=== PATIENT | male | born 1935 | race Caucasian/White ===

== ENCOUNTER 2017-09-02 00:34 | Inpatient (IN) | payer MEDICARE, OTHER ==
[2017-09-02] VITALS (18 sets, daily range): BP systolic 99–146; BP diastolic 68–102
[~2017-09-02] VITALS: Ht 185.4 cm; Wt 80.1 kg
[2017-09-02] MEDS ORDERED: ASPIRIN 81 MG CHEW (CHILDREN'S ASA) ONE (00:54)
[2017-09-02] MEDS ORDERED: NITROGLYCERIN 0.4 MG SL TABS BTL 25'S SL ONE (00:54)
[2017-09-02 00:59] LABS: BASOPHILS % (AUTO) 0 % (0-10); EOSINOPHILS # (AUTO) 0.1 10^3/uL (0.0-0.3); EOSINOPHILS % (AUTO) 2 % (0-10); HEMATOCRIT 47 % (40-54); HEMOGLOBIN 16.5 G/DL (13.3-17.7); LYMPHOCYTES # (AUTO) 1.9 X 10^3 (1.0-4.0); LYMPHOCYTES % (AUTO) 33 % (12-44); MEAN CORPUSCULAR HEMOGLOBIN 32 PG (25-34); MEAN CORPUSCULAR HGB CONC 35 G/DL (32-36); MEAN CORPUSCULAR VOLUME 91 FL (80-99); MEAN PLATELET VOLUME 9.7 FL (7.4-10.4); MONOCYTES # (AUTO) 0.6 X 10^3 (0.0-1.0); MONOCYTES % (AUTO) 11 % (0-12); NEUTROPHILS # (AUTO) 3.1 X 10^3 (1.8-7.8); NEUTROPHILS % (AUTO) 53 % (42-75); PLATELET COUNT 165 10^3/uL (130-400); RED BLOOD COUNT 5.18 10^6/uL (4.35-5.85); RED CELL DISTRIBUTION WIDTH 13.8 % (10.0-14.5); WHITE BLOOD COUNT 5.7 10^3/uL (4.3-11.0)
[2017-09-02] MEDS ORDERED: ASPIRIN 81 MG CHEW (CHILDREN'S ASA) PO ONE (01:00)
[2017-09-02] MEDS ORDERED: NITROGLYCERIN 0.4 MG SL TABS BTL 25'S SL PRN ×2 (01:00→02:30)
[2017-09-02 01:05] LABS: INR 1.1 (0.8-1.4); PROTHROMBIN TIME PATIENT 13.7 SEC (12.2-14.7)
--- NOTE | 2017-09-02 01:05 | ED Chest Pain ---
General Chief Complaint: Chest Pain Stated Complaint: CP, NECK & LEFT ARM PAIN Nursing Triage Note: PT PRESENTS TO ER WITH COMPLAINT OF CHEST PAIN. Nursing Sepsis Screen: No Definite Risk Source: patient, spouse Exam Limitations: no limitations History of Present Illness Date Seen by Provider: Sep 02, 2017 Time Seen by Provider: 00:50 Initial Comments The patient presents to the ER by private conveyance with his spouse and a chief complaint that about 11:30 last night he woke up with some discomfort in his chest that he described as a burning pressure that he thought might of been reminiscent of acid reflux. He took some antacids and it did not go away. The pain was initially a peak 7 out of 10. It radiated down his left arm. He rested for a minute and when the pain did not seem to get better on its own or with the antacids he decided to come to the ER. He did not have any shortness of breath or cough nor did he have any fevers, chills or nausea. He does not have a primary history of heart disease. He does not take any routine medications or have any significant medical history other than acid reflux. He did take an entire adult aspirin and swallow it. He felt a few palpitations with this chest. He states he also has a history of PACs and PVCs frequently. He is not known to any numerical control machine machinist. He is not having any shortness of breath or worsening chest pain with exertion. He says he did lift about a ton of gravel yesterday for a dog pen by wheelbarrow although he is not having any soreness or stiffness and any of his chest wall or shoulder muscles. Presently he rates his chest pain about a 2 out of 10. Allergies and Home Medications Allergies Coded Allergies: No Known Drug Allergies (Unverified , 09/02/17) Patient Home Medication List Home Medication List Reviewed: Yes Review of Systems Constitutional: No chills, No diaphoresis, No dizziness, No fever, No malaise EENTM: No Blurred Vision, No Double Vision Respiratory: Denies Cough, Denies Shortness of Air, Denies SOA With Exertion, Denies Wheezing Cardiovascular: See HPI, Chest Pain; Denies Edema, Denies Irregular Heart Rate , Denies Lightheadedness Gastrointestinal: Denies Abdomen Distended, Denies Abdominal Pain, Denies Constipated, Denies Diarrhea, Denies Nausea Genitourinary: Denies Burning, Denies Drainage Musculoskeletal: No back pain, No joint pain, No neck pain Skin: No pruritus, No rash Psychiatric/Neurological: Denies Headache, Denies Numbness Past Meascic-Mkdxks-Kiwkws Hx Patient Social History Alcohol Use: Regular Use Recreational Drug Use: No Smoking Status: Former Smoker Type Used: Cigarettes (quit smoking cigarettes in the 1970s) Recent Foreign Travel: No Contact w/Someone Who Travel: No Recent Infectious Disease Expo: No Physical Exam Vital Signs Vital Signs - First Documented 09/02/17 00:35 Temp 97.0 Pulse 125 Resp 20 B/P (MAP) 179/104 (129) Pulse Ox 97 O2 Delivery Room Air Capillary Refill : Less Than 3 Seconds General Appearance: No Apparent Distress, WD/WN HEENT: PERRL/EOMI, Normal ENT Inspection, Pharynx Normal Neck: Full Range of Motion, Non Tender, Supple Respiratory: Chest Non Tender, Lungs Clear, Normal Breath Sounds, No Accessory Muscle Use, No Respiratory Distress Cardiovascular: Regular Rate, Rhythm, No Edema, No Gallop, No JVD, No Murmur, Normal Peripheral Pulses Gastrointestinal: Normal Bowel Sounds, Non Tender, Soft Extremity: Normal Capillary Refill, Normal Inspection, Non Tender, No Calf Tenderness, No Pedal Edema Neurologic/Psychiatric: Alert, Oriented x3, Normal Mood/Affect Skin: Normal Color, Warm/Dry Progress/Results/Core Measures Results/Orders Lab Results Laboratory Tests Test 09/02/17 00:45 Range/Units White Blood Count 5.7 4.3-11.0 10^3/uL Red Blood Count 5.18 4.35-5.85 10^6/uL Hemoglobin 16.5 13.3-17.7 G/DL Hematocrit 47 40-54 % Mean Corpuscular Volume 91 80-99 FL Mean Corpuscular Hemoglobin 32 25-34 PG Mean Corpuscular Hemoglobin Concent 35 32-36 G/DL Red Cell Distribution Width 13.8 10.0-14.5 % Platelet Count 165 130-400 10^3/uL Mean Platelet Volume 9.7 7.4-10.4 FL Neutrophils (%) (Auto) 53 42-75 % Lymphocytes (%) (Auto) 33 12-44 % Monocytes (%) (Auto) 11 0-12 % Eosinophils (%) (Auto) 2 0-10 % Basophils (%) (Auto) 0 0-10 % Neutrophils # (Auto) 3.1 1.8-7.8 X 10^3 Lymphocytes # (Auto) 1.9 1.0-4.0 X 10^3 Monocytes # (Auto) 0.6 0.0-1.0 X 10^3 Eosinophils # (Auto) 0.1 0.0-0.3 10^3/uL Basophils # (Auto) 0.0 0.0-0.1 10^3/uL Prothrombin Time 13.7 12.2-14.7 SEC INR Comment 1.1 0.8-1.4 Activated Partial Thromboplast Time 31 24-35 SEC Sodium Level 143 135-145 MMOL/L Potassium Level 3.9 3.6-5.0 MMOL/L Chloride Level 109 H 98-107 MMOL/L Carbon Dioxide Level 22 21-32 MMOL/L Anion Gap 12 5-14 MMOL/L Blood Urea Nitrogen 18 7-18 MG/DL Creatinine 0.83 0.60-1.30 MG/DL Estimat Glomerular Filtration Rate > 60 BUN/Creatinine Ratio 22 Glucose Level 110 H 70-105 MG/DL Calcium Level 9.7 8.5-10.1 MG/DL Magnesium Level 2.4 1.8-2.4 MG/DL Total Bilirubin 1.0 0.1-1.0 MG/DL Aspartate Amino Transf (AST/SGOT) 57 H 5-34 U/L Alanine Aminotransferase (ALT/SGPT) 33 0-55 U/L Alkaline Phosphatase 99 40-136 U/L Myoglobin 76.6 10.0-92.0 NG/ML Troponin I < 0.30 <0.30 NG/ML B-Type Natriuretic Peptide 143.6 H <100.0 PG/ML Total Protein 7.1 6.4-8.2 GM/DL Albumin 4.4 3.2-4.5 GM/DL Lipase 36 8-78 U/L My Orders Orders - [facility] Cbc With Automated Diff (09/02/17 00:52) Magnesium (09/02/17 00:52) Chest 1 View, Ap/Pa Only (09/02/17 00:52) Ekg Tracing (09/02/17 00:52) Cardiac Profile 1 (09/02/17 00:52) Comprehensive Metabolic Panel (09/02/17 00:52) Myoglobin Serum (09/02/17 00:52) Protime With Inr (09/02/17 00:52) Partial Thromboplastin Time (09/02/17 00:52) O2 (09/02/17 00:52) Monitor-Rhythm Ecg Trace Only (09/02/17 00:52) Lipid Panel (09/03/17 06:00) Aspirin Chewable Tablet (Baby Aspirin Ch (09/02/17 01:00) Nitroglycerin 0.4 Mg Btl 25's (Nitrostat (09/02/17 01:00) Saline Lock/Iv-Start (09/02/17 00:52) Lipase (09/02/17 00:52) BNP (09/02/17 00:52) Nitroglycerin 0.4 Mg Btl 25's (Nitrostat (09/02/17 00:54) Aspirin Chewable Tablet (Baby Aspirin Ch (09/02/17 00:54) Medications Given in ED Current Medications Medications Dose Ordered Sig/Romeo Route Start Time Stop Time Status Last Admin Dose Admin Aspirin 81 mg STK-MED ONCE .ROUTE 09/02/17 00:54 09/02/17 00:55 DC 09/02/17 00:58 81 MG Aspirin 162 mg ONCE ONCE PO 09/02/17 01:00 09/02/17 01:01 DC 09/02/17 00:58 162 MG Nitroglycerin 0.4 mg STK-MED ONCE SL 09/02/17 00:54 09/02/17 00:55 DC 09/02/17 00:58 0.4 MG Nitroglycerin 0.4 mg UD PRN SL 09/02/17 01:00 09/02/17 00:58 0.4 MG Vital Signs/I&O 09/02/17 00:35 Temp 97.0 Pulse 125 Resp 20 B/P (MAP) 179/104 (129) Pulse Ox 97 O2 Delivery Room Air Blood Pressure Mean: 129 Progress Progress Note : Time: 01:01 Progress Note Chest pain without chest wall tenderness or painful inspiration. Differential includes cardiac, esophageal. Less likely costochondritis as is not tender to palpation however with his history of lifting a lot of gravel yesterday could be overuse syndrome. We'll start with 180 of aspirin in addition to the 325 that he took at home as we don't know the expiration date. We'll give him a single dose of nitroglycerin as his pain is already down to a 2 and see if this gives his discomfort or blood pressure any improvement. After his first dose of nitroglycerin his blood pressure is down to 125/97. His EKG has some artifact and PVCs and PACs but there does seem to be about 1 box depression in leads V4 and a almost 2 box depression in leads V5 and V6 which could indicate right sided strain pattern or non-STEMI. We'll see what the troponin shows initially. ED ACS 27 pts Not low risk. This patient is not a candidate for early discharge and should receive a standard chest pain evaluation with delayed troponin testing. Initial ECG Impression Date: Sep 02, 2017 Initial ECG Impression Time: 00:41 Initial ECG Rate: 117 Initial ECG Rhythm: S.Tach Initial ECG Intervals: QT (452) Initial ECG Impression: Nonspecific Changes Initial ECG Comparisson: No Previous ECG Available Comment Lateral ST depression with sinus tachycardia. Diagnostic Imaging Diagonstic Imaging: Xray Plain Films/CT/US/NM/MRI: chest (1v) Reviewed: Reviewed by Me Departure Communication (Admissions) Time/Spoke to Admitting Phy: 01:56 Dr Delgado: Discussed case lab imaging EKG and findings and he will see the patient in the morning. Time/Spoke to Consulting Phy: 01:30 Dr. Ojeda recommends holding on to him and repeat labs and EKG in the morning and he'll see the patient. Impression Primary Impression: Chest pain Qualified Codes: R07.9 - Chest pain, unspecified Disposition: ADMITTED INPATIENT Condition: Improved Admissions Decision to Admit Reason: Admit from ER (General) Decision to Admit/Date: Sep 02, 2017 Time/Decision to Admit Time: 02:03 Departure-Patient Inst. Referrals: NIKKI GILMAN MD (PCP/Family) Primary Care Physician Copy Copies To 1: PAWAN OJEDA MD, TITUS J Sep 02, 2017 01:05
[2017-09-02 01:14] LABS: ALANINE AMINOTRANSFERASE 33 U/L (0-55); ALBUMIN 4.4 GM/DL (3.2-4.5); ALKALINE PHOSPHATASE 99 U/L (40-136); BUN/CREATININE RATIO 22; CALCIUM 9.7 MG/DL (8.5-10.1); CARBON DIOXIDE 22 MMOL/L (21-32); CHLORIDE 109 MMOL/L (98-107); CREATININE SERUM 0.83 MG/DL (0.60-1.30); GFR ESTIMATED > 60; GLUCOSE 110 MG/DL (70-105); LIPASE 36 U/L (8-78); MAGNESIUM 2.4 MG/DL (1.8-2.4); POTASSIUM 3.9 MMOL/L (3.6-5.0); SODIUM 143 MMOL/L (135-145); TOTAL PROTEIN 7.1 GM/DL (6.4-8.2)
[2017-09-02 01:20] LABS: MYOGLOBIN SERUM 76.6 NG/ML (10.0-92.0)
[2017-09-02] MEDS ORDERED: ONDANSETRON 4 MG/2 ML (SDV) Z0FRAN IVP PRN (02:15)
[2017-09-02] MEDS ORDERED: morphine INJ 4 MG/ML 1 ML (VIAL/SYRINGE) IVP PRN (02:30)
[2017-09-02 05:59] LABS: BASOPHILS % (AUTO) 0 % (0-10); EOSINOPHILS % (AUTO) 1 % (0-10); HEMATOCRIT 45 % (40-54); HEMOGLOBIN 15.6 G/DL (13.3-17.7); LYMPHOCYTES # (AUTO) 1.1 X 10^3 (1.0-4.0); LYMPHOCYTES % (AUTO) 21 % (12-44); MEAN CORPUSCULAR HEMOGLOBIN 32 PG (25-34); MEAN CORPUSCULAR HGB CONC 35 G/DL (32-36); MEAN CORPUSCULAR VOLUME 91 FL (80-99); MEAN PLATELET VOLUME 9.8 FL (7.4-10.4); MONOCYTES # (AUTO) 0.5 X 10^3 (0.0-1.0); MONOCYTES % (AUTO) 9 % (0-12); NEUTROPHILS # (AUTO) 3.8 X 10^3 (1.8-7.8); NEUTROPHILS % (AUTO) 69 % (42-75); PLATELET COUNT 146 10^3/uL (130-400); RED CELL DISTRIBUTION WIDTH 14.1 % (10.0-14.5); WHITE BLOOD COUNT 5.5 10^3/uL (4.3-11.0)
[2017-09-02 06:16] LABS: BUN/CREATININE RATIO 24; CARBON DIOXIDE 20 MMOL/L (21-32); CHLORIDE 111 MMOL/L (98-107); CHOLESTEROL 130 MG/DL (< 200); GFR ESTIMATED > 60; GLUCOSE 99 MG/DL (70-105); HDL CHOLESTEROL 65 MG/DL (40-60); POTASSIUM 4.1 MMOL/L (3.6-5.0); SODIUM 142 MMOL/L (135-145); TRIGLYCERIDES 46 MG/DL (<150); VLDL CHOLESTEROL 9 MG/DL (5-40)
[2017-09-02] MEDS ORDERED: LIDOCAINE 1% INJ 20 ML 20 ML VIAL ONE (07:02)
[2017-09-02] MEDS ORDERED: NS IV 1000 ML 1,000 ML ONE ×2 (07:02→10:03)
[2017-09-02] MEDS ORDERED: HEParin (CATH LAB) 2,000 ML IV ONE (07:02)
--- NOTE | 2017-09-02 07:04 | Diagnostic Imaging Report ---
Indication: Chest pain. Comparison: None. Findings: Single view of the chest demonstrates cardiac enlargement with slight central vascular congestion. There is no pneumothorax or effusion. Osseous structures are normal. Impression: Cardiac enlargement with slight central vascular congestion. Dictated by: Dictated on workstation # [id number]
[2017-09-02] MEDS ORDERED: MIDAZOLAM 5 MG/5 ML (VERSED) VIAL ONE (07:30)
[2017-09-02] MEDS ORDERED: HEParin 1000 UNIT/ML (10ML VIAL) FOR BOLUS ONE (07:31)
[2017-09-02] MEDS ORDERED: fentaNYL INJECTION 100 MCG/2 ML AMP ONE (07:31)
--- NOTE | 2017-09-02 07:38 | Cardiology History & Physical ---
HPI-Cardiology Cardiology Consultation Date of Consultation 09/02/17 Date of Admission Time Seen by Provider: 07:35 Indication: Chest pain HPI 81 years old gentleman with no significant past medical history, had history of hemorrhagic telangiectasia with recurrent nosebleed. Woke up this morning with heartburn, took some Tums, continue to have chest discomfort without palpitation. Came to the emergency room and noted to be in atrial fibrillation , even sublingual nitroglycerin with immediate relieve of his chest pain, had subtle EKG changes. Denied any further episode of chest pain, reported occasional episodes of palpitation in the past. No syncope or near syncopal episodes, no shortness of breath. His troponin was noted to be elevated and he is in atrial fibrillation PMH-Cardiology Immunizations Up To Date Tetanus Booster (DTap): Unknown Seasonal Allergies Seasonal Allergies: No Surgeries Yes (NASAL) Respiratory No Cardiovascular Yes Neurological No Genitourinary No Gastrointestinal No Musculoskeletal No Endocrine No HEENT No Cancer No Psychosocial No Blood Transfusions No Other PMHx Past medical history discussed below Social History Patient Social History Marrital Status: Employed/Student: retired Alcohol Use: Regular Use Recreational Drug Use: No Smoking: Never smoker Recent Foreign Travel: No Contact w/other who traveled: No Recent Infectious Disease Expo: No Family Hx Other Hemorrhagic telangiectasia ROS-Cardiology Review of Systems General: No Chills, No Night Sweats, No Fatigue, No Malaise, No Appetite HEENT: No Head Aches, No Visual Changes, No Eye Pain, No Ear Pain, No Dysphasia , No Sinus Congestion, No Post Nasal Drip, No Sore Throat Pulmonary: No Dyspnea, No Cough, No Pleuritic Chest Pain Cardiovascular: Chest Pain, Palpitations; No: Orthopnea, Paroxysmal Noc. Dyspnea, Edema, Lt Headedness Gastrointestinal: No: Nausea, Vomiting, Abdominal Pain, Diarrhea, Constipation , Melena, Hematochezia Genitourinary: No Dysuria, No Frequency, No Incontinence, No Hematuria, No Retention Musculoskeletal: No: neck pain, shoulder pain, arm pain, back pain, hand pain, leg pain, foot pain Neurological: No: Weakness, Numbness, Incoordination, Change in speech, Confusion, Seizures Home Medications & Allergies Allergies: Coded Allergies: No Known Drug Allergies (Unverified , 09/02/17) Home Medication List Reviewed: Yes Does not take any medication at home Exam-Cardiology Vital Signs Vital Signs Date Time Temp Pulse Resp B/P (MAP) Pulse Ox O2 Delivery O2 Flow Rate FiO2 09/02/17 00:35 97.0 125 20 179/104 (129) 97 Room Air Exam General Appearance: Alert, Oriented X3, Cooperative, No Acute Distress HEENT: Atraumatic, PERRLA Respiratory: Clear to Auscultation, Normal Air Movement Cardiovascular: Normal S1, Normal S2, No Murmurs, Other (Atrial fibrillation) Abdominal: Normal Bowel Sounds, Soft, No Tenderness, No Hepatosplenomegaly, No Masses Extremities: No Clubbing, No Cyanosis, No Edema, Normal Pulses, No Tenderness/ Swelling Skin: No Rashes, No Breakdown, No Significant Lesion Neuro: Normal Gait, Normal Speech, Strength at 5/5 X4 Ext, Normal Tone, Sensation Intact Psych/Mental Status: Mental Status NL, Mood NL Results Labs Labs Laboratory Tests 09/02/17 00:45: White Blood Count 5.7, Red Blood Count 5.18, Hemoglobin 16.5, Hematocrit 47, Mean Corpuscular Volume 91, Mean Corpuscular Hemoglobin 32, Mean Corpuscular Hemoglobin Concent 35, Red Cell Distribution Width 13.8, Platelet Count 165, Mean Platelet Volume 9.7, Neutrophils (%) (Auto) 53, Lymphocytes (%) (Auto) 33, Monocytes (%) (Auto) 11, Eosinophils (%) (Auto) 2, Basophils (%) (Auto) 0, Neutrophils # (Auto) 3.1, Lymphocytes # (Auto) 1.9, Monocytes # (Auto) 0.6, Eosinophils # (Auto) 0.1, Basophils # (Auto) 0.0, Prothrombin Time 13.7, INR Comment 1.1, Activated Partial Thromboplast Time 31, Sodium Level 143, Potassium Level 3.9, Chloride Level 109H, Carbon Dioxide Level 22, Anion Gap 12 , Blood Urea Nitrogen 18, Creatinine 0.83, Estimat Glomerular Filtration Rate > 60, BUN/Creatinine Ratio 22, Glucose Level 110H, Calcium Level 9.7, Magnesium Level 2.4, Total Bilirubin 1.0, Aspartate Amino Transf (AST/SGOT) 57H, Alanine Aminotransferase (ALT/SGPT) 33, Alkaline Phosphatase 99, Myoglobin 76.6, Troponin I < 0.30, B-Type Natriuretic Peptide 143.6H, Total Protein 7.1, Albumin 4.4, Lipase 36 09/02/17 05:50: White Blood Count 5.5, Red Blood Count 4.90, Hemoglobin 15.6, Hematocrit 45, Mean Corpuscular Volume 91, Mean Corpuscular Hemoglobin 32, Mean Corpuscular Hemoglobin Concent 35, Red Cell Distribution Width 14.1, Platelet Count 146, Mean Platelet Volume 9.8, Neutrophils (%) (Auto) 69, Lymphocytes (%) (Auto) 21, Monocytes (%) (Auto) 9, Eosinophils (%) (Auto) 1, Basophils (%) (Auto) 0, Neutrophils # (Auto) 3.8, Lymphocytes # (Auto) 1.1, Monocytes # (Auto) 0.5, Eosinophils # (Auto) 0.0, Basophils # (Auto) 0.0, Sodium Level 142, Potassium Level 4.1, Chloride Level 111H, Carbon Dioxide Level 20L, Anion Gap 11, Blood Urea Nitrogen 17, Creatinine 0.70, Estimat Glomerular Filtration Rate > 60, BUN/ Creatinine Ratio 24, Glucose Level 99, Calcium Level 9.0, Troponin I 3.56*H, Triglycerides Level 46, Cholesterol Level 130, LDL Cholesterol Direct 57, VLDL Cholesterol 9, HDL Cholesterol 65H A/P-Cardiology Admission Diagnosis Non-ST elevation myocardial infarction Paroxysmal atrial fibrillation Unstable angina Coronary artery disease Hypertension Admission Status: Observation Assessment/Plan Non-ST elevation myocardial infarction, unstable angina, I am planning to proceed with cardiac catheterization possible PTCA. Atrial fibrillation, unknown duration, patient will need oral anticoagulation after the catheterization. Palpitation on and off, probably paroxysmal atrial fibrillation. Gastroesophageal reflux disease Hypertension, poorly controlled. I will initiate him on beta blockers Questionable hyperlipidemia. I will evaluate lipid Clinical Quality Measures AMI/AHF: ASA po Prior to arrival: Yes PAWAN AKHTAR MD Sep 02, 2017 07:38
--- NOTE | 2017-09-02 07:39 | Cardiac Procedure Note-CS/ASA ---
Pre-Procedure Note Pre-Op Procedure Note H&P Reviewed The H&P was reviewed, patient examined and no changes noted. Date H&P Reviewed: Sep 02, 2017 Time H&P Reviewed: 07:38 Conscious Sedation Pre-Proced Time Reviewed: 07:38 ASA Class: 3 Airway Mallampati Classification: (n[place]alton appropriate class) I. II. III, IV Lungs Heart ASA score ASA 1: a normal healthy patient ASA 2: a patient with a mild systemic disease (mid diabetes, controlled hypertension, obesity x ASA 3: a patient with a severe systemic disease that limits activity (angina , COPD, prior Myocardial infarction) ASA 4: a patient with an incapacitating disease that is a constant threat to life (CHF, renal failure) ASA 5: a moribund patient not expected to survive 24 hrs. (ruptured aneurysm) ASA 6: a declared brain patient whose organs are being harvested. For emergent operations, add the letter E after the classification Grade 3 Sedation Plan: Analgesia, Amnesia, Plan communicated to team members, Discussed options with patient/fam, Discussed risks with patient/fam Note The patient is an appropriate candidate to undergo the planned procedure, sedation, and anesthesia. The patient immediately re-assessed prior to indication. PAWAN AKHTAR MD Sep 02, 2017 07:38
[2017-09-02] MEDS ORDERED: EPTIFIBATIDE BOLUS 20 ML IV ONE (08:04)
[2017-09-02] MEDS ORDERED: NITRO DRIP 25000 MCG/D5W 250 ML IV ONE (08:14)
[2017-09-02] MEDS ORDERED: EPTIFIBATIDE DRIP 100 ML IV ONE (08:17)
[2017-09-02] MEDS ORDERED: ASPIRIN 325 MG (5 GR) TABLET ONE (08:38)
[2017-09-02] MEDS ORDERED: TICAGRELOR 90 MG TABLET (BRILINTA) PO ONE (08:38)
[2017-09-02] MEDS ORDERED: EPTIFIBATIDE DRIP 100 ML IV SCH (08:45)
[2017-09-02] MEDS ORDERED: PATIENT MAY USE OWN MEDS, ALL PO SCH (08:45)
[2017-09-02] MEDS ORDERED: lisINopril 5 MG (PRINIVIL) TABLET PO SCH (09:00)
[2017-09-02] MEDS ORDERED: ASPIRIN E.C. 81 MG (ECOTRIN) TAB PO SCH (09:00)
[2017-09-02] MEDS ORDERED: ATROPINE INJECTION 1 MG/10 ML SYR (ABBOTT) ONE (09:21)
[2017-09-02] MEDS ORDERED: PANTOPRAZOLE 40 MG (PROTONIX) TAB PO NR (10:07)
[2017-09-02] MEDS: NS IV 1000 ML 1,000 ML IV SCH ×3 (10:13→20:18)
[2017-09-02] MEDS ORDERED: TICAGRELOR 90 MG TABLET (BRILINTA) PO SCH (10:57)
--- NOTE | 2017-09-02 16:01 | Cardiac Cath Report ---
Cardiac Cath Report Physician (s)/Parking Enforcement Technician (s) Physician PAWAN AKHTAR MD Pre-Procedure Diagnosis Pre-Procedure Diagnosis: coronary artery disease, non-ST NE Post-Procedure Note Procedure Start Date: Sep 02, 2017 Name of Procedure: Left heart catheterization, left ventriculogram Stent to the LAD Findings/Procedure Note PROCEDURE NOTE: After explaining the procedure to the patient, all pros and cons were explained , all questions were answered. The patient signed the consent and then he was placed on the cardiac catheterization laboratory. Groin was prepped SL fashion local anesthesia was used. Sheath placed in the right femoral artery. Lv right and left catheter were used to access the coronary system. Pigtail was used to access the left ventricular cavity. Left ventriculogram was done Patient has severe stenosis at the proximal LAD with heavy thrombus burden and slow flow, given heparin bolus and double Integrilin bolus then he was given Integrilin drip, FL guide was used to ask the left coronary system, BMW wire was placed in the distal LAD then I used predilatation with 3.015 mm balloon, some improvement was noted then I proceeded with the appointment of Alpine 3.5 23 mm drug-eluting stent expanded to 3.6 mm with excellent results but slow flow beyond the stent. Patient was given Integrilin bolus and multiple doses of nitroglycerin, the slow flow has improved significantly but continued to have ROLAN 2 flow, I felt that it is significant improvement especially with the low cardiac output. He was having no chest pain and EKG returned to normal. I decided to continue monitoring. At the end of the procedure the sheath was removed. Closure device was used FINDINGS: Hemodynamics LV 100/19, end-diastolic pressure of 19 Aorta 120/95, no significant gradient was noted ANATOMY: Left Main is free of obstructive disease Left Anterior Descending is large artery with severe proximal LAD stenosis successful careful placement of drug-eluting stent Alpine 3.523 mm expanded to 3.6 at the ostial/proximal LAD with excellent results, slow flow at the distal LAD due to low cardiac output and heavy thrombus burden, some improvement after aggressive anticoagulation and intracoronary nitroglycerin. 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 Severe proximal/ostial LAD stenosis with heavy thrombus burden, successful antiplastic in-stent deployment using Alpine 3.523 mm expanded to 3.6 mm with excellent results. Slow flow at the distal LAD with some improvement after nitroglycerin injection 2. 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 Severe ischemic cardiomyopathy with anterior wall, anteroapical, anteroseptal hypokinesia to akinesia with estimated ejection fraction 30 percent DISCUSSION AND RECOMMENDATION: I will continue maximizing medical therapy at this point. Planning for possible EDWIN and cardioversion if patient does not convert Anesthesia Type: Conscious Sedation Estimated blood loss (mL): 15 ml Contrast Amount: 175 ml` Total Radiation Dose: 1257 mGy Post-Procedure Diagnosis Post-operative diagnosis: Non-ST myocardial infarction Coronary artery disease Congestive heart failure, acute left ventricular systolic dysfunction, ischemic cardiomyopathy Atrial fibrillation PAWAN AKHTAR MD Sep 02, 2017 4:01 pm
[2017-09-02] MEDS: OMEGA 3 (FISH OIL) 1000 MG CAP PO SCH (16:08)
[2017-09-02] MEDS: TICAGRELOR 90 MG TABLET (BRILINTA) PO SCH (20:57)
[2017-09-02] MEDS ORDERED: ATORVASTATIN 80 MG (LIPITOR) TABLET PO SCH (21:00)
[2017-09-03] VITALS (10 sets, daily range): BP systolic 83–141; BP diastolic 56–97
[2017-09-03 03:55] LABS: HEMOGLOBIN 13.4 G/DL (13.3-17.7); MEAN PLATELET VOLUME 10.4 FL (7.4-10.4); RED BLOOD COUNT 4.16 10^6/uL (4.35-5.85); RED CELL DISTRIBUTION WIDTH 13.7 % (10.0-14.5); WHITE BLOOD COUNT 7.1 10^3/uL (4.3-11.0)
[2017-09-03 04:23] LABS: BUN/CREATININE RATIO 15; CALCIUM 8.6 MG/DL (8.5-10.1); CARBON DIOXIDE 24 MMOL/L (21-32); CHLORIDE 110 MMOL/L (98-107); CHOLESTEROL 111 MG/DL (< 200); CREATININE SERUM 0.73 MG/DL (0.60-1.30); GFR ESTIMATED > 60; GLUCOSE 97 MG/DL (70-105); HDL CHOLESTEROL 51 MG/DL (40-60); POTASSIUM 3.8 MMOL/L (3.6-5.0); SODIUM 142 MMOL/L (135-145); TRIGLYCERIDES 60 MG/DL (<150); VLDL CHOLESTEROL 12 MG/DL (5-40)
[2017-09-03] MEDS: NS IV 1000 ML 1,000 ML IV SCH (06:22)
[2017-09-03] MEDS: OMEGA 3 (FISH OIL) 1000 MG CAP PO SCH ×2 (06:27→16:17)
[2017-09-03] MEDS: PANTOPRAZOLE 40 MG (PROTONIX) TAB PO SCH (06:28)
--- NOTE | 2017-09-03 07:28 | Cardiology Progress Note ---
Subjective Date Seen by Provider: Sep 03, 2017 Time Seen by Provider: 07:23 Subjective/Events-last exam Patient was seen at bedside, laying down in bed, denied any chest pain or shortness of breath, complaining of fatigue and loss of energy. Groin is healing well, has bruising around the right groin. Review of Systems General: No Chills, No Night Sweats; Fatigue; No Malaise, No Appetite, No Other HEENT: No Head Aches, No Visual Changes, No Eye Pain, No Ear Pain, No Dysphasia , No Sinus Congestion, No Post Nasal Drip, No Sore Throat, No Other Pulmonary: No Dyspnea, No Cough, No Pleuritic Chest Pain, No Other Cardiovascular: No: Chest Pain, Palpitations, Orthopnea, Paroxysmal Noc. Dyspnea, Edema, Lt Headedness, Other Objective-Cardiology Exam Last Set of Vital Signs Vital Signs 09/02/17 09/02/17 09/02/17 09/03/17 09:06 09:45 11:31 05:00 Temp 98.0 Pulse 84 Resp 18 B/P (MAP) 137/97 (110) Pulse Ox 99 O2 Delivery Room Air O2 Flow Rate 2.00 Capillary Refill : Less Than 3 Seconds General: Alert, Oriented X3, Cooperative, No Acute Distress HEENT: Atraumatic, PERRLA Lungs: Clear to Auscultation, Normal Air Movement Heart: Normal S1, Normal S2, No Murmurs, Other (Atrial fibrillation) Abdomen: Normal Bowel Sounds, Soft, No Tenderness, No Hepatosplenomegaly, No Masses Extremities: No Clubbing, No Cyanosis, No Edema, Normal Pulses, No Tenderness/ Swelling Skin: No Rashes, No Breakdown, No Significant Lesion Neuro: Normal Gait, Normal Speech, Strength at 5/5 X4 Ext, Normal Tone, Sensation Intact Psych/Mental Status: Mental Status NL, Mood NL Results Lab Laboratory Tests 09/03/17 03:05 A/P-Cardiology Admission Diagnosis Non-ST elevation myocardial infarction Paroxysmal atrial fibrillation Unstable angina Coronary artery disease Hypertension Assessment/Plan Non-ST elevation myocardial infarction, status post cardiac catheterization with stenting of the LAD with excellent results, slow flow in the distal LAD that improved after intracoronary nitroglycerin. Congestive heart failure, acute left ventricular systolic dysfunction, ischemic cardiomyopathy with ejection fraction 30-35 percent, severe hypokinesia to akinesia of the anterior wall, anterior septum and anterolateral wall. Starting on beta blockers and low-dose KIP inhibitor Atrial fibrillation, unknown duration, I will do EDWIN and possible electrical cardioversion and start patient on Coumadin in addition to aspirin and Plavix Palpitation on and off, probably paroxysmal atrial fibrillation. Gastroesophageal reflux disease Hypertension, continue to monitor blood pressure Clinical Quality Measures AMI/AHF: ASA po Prior to arrival: Yes DVT/VTE Risk/Contraindication: Risk Factor Score Per Nursin RFS Level Per Nursing on Admit: 2=Moderate PAWAN AKHTAR MD Sep 03, 2017 07:28
--- NOTE | 2017-09-03 07:29 | Cardiac Procedure Note-CS/ASA ---
Pre-Procedure Note Pre-Op Procedure Note H&P Reviewed The H&P was reviewed, patient examined and no changes noted. Date H&P Reviewed: Sep 03, 2017 Time H&P Reviewed: 07:28 Conscious Sedation Pre-Proced Time Reviewed: 07:29 ASA Class: 3 Airway Mallampati Classification: ([place] appropriate class) I. II. III, IV Lungs Heart ASA score ASA 1: a normal healthy patient ASA 2: a patient with a mild systemic disease (mid diabetes, controlled hypertension, obesity x ASA 3: a patient with a severe systemic disease that limits activity (angina , COPD, prior Myocardial infarction) ASA 4: a patient with an incapacitating disease that is a constant threat to life (CHF, renal failure) ASA 5: a moribund patient not expected to survive 24 hrs. (ruptured aneurysm) ASA 6: a declared brain patient whose organs are being harvested. For emergent operations, add the letter E after the classification Grade 3 Sedation Plan: Analgesia, Amnesia, Plan communicated to team members, Discussed options with patient/fam, Discussed risks with patient/fam Note The patient is an appropriate candidate to undergo the planned procedure, sedation, and anesthesia. The patient immediately re-assessed prior to indication. PAWAN AKHTAR MD Sep 03, 2017 07:29
[2017-09-03] MEDS ORDERED: ENOXAPARIN 80 MG/0.8 ML (LOVENOX) SYR SC SCH (07:30)
[2017-09-03] MEDS ORDERED: LIDOCAINE 2% VISCOUS 15 ML UDC ONE (07:45)
[2017-09-03] MEDS ORDERED: MIDAZOLAM 5 MG/5 ML (VERSED) VIAL ONE (07:52)
[2017-09-03] MEDS ORDERED: proPOfol 200 MG/20 ML (DIPRIVAN) VIAL IV ONE (07:52)
--- NOTE | 2017-09-03 08:55 | Cardioversion ---
Cardioversion PROCEDURE PHYSICIAN: Pawan Ojeda DATE OF PROCEDURE: 09/03/17 DIRECT EXTERNAL ELECTRICAL CARDIOVERSION: Indications: Atrial Fibrillation Preoperative diagnoses: Atrial Fibrillation Postoperative diagnosis: Sinus rhythm, Successful Electrical Cardioversion, return to atrial fibrillation and has been in and out of A. fib Anesthesia: By Anesthesia services Complications: None Procedure Details: The patient was brought the dentures lab technician after informed consent was taken, all the risks and complications were explained including the risk of stroke. Electrical cardioversion was carried out with anesthesia support with propofol. 120 and 200 joules of synchronized shock was delivered through external patches which promptly restored sinus rhythm. Patient return to atrial fibrillation within a few minutes, and has been in and out of atrial fibrillation. I'll start him on amiodarone bolus and oral loading Conclusions: 1. Successful electrical cardioversion, patient could not maintain sinus rhythm , return to paroxysmal atrial fibrillation 2. I will load him with amiodarone and monitor, might consider repeating cardioversion in the morning PAWAN OJEDA MD Sep 03, 2017 08:55
[2017-09-03] MEDS ORDERED: LIDOCAINE 2% VISCOUS 15 ML UDC PO ONE (09:00)
[2017-09-03] MEDS ORDERED: AMIODARONE FOR BOLUS 150 MG in D5W 100 ML IVPB 100 ML IV NR (09:00)
[2017-09-03] MEDS: AMIODARONE 200 MG (CORDARONE) TAB PO SCH ×2 (10:02→20:19)
[2017-09-03] MEDS: ASPIRIN E.C. 81 MG (ECOTRIN) TAB PO SCH (10:02)
[2017-09-03] MEDS: TICAGRELOR 90 MG TABLET (BRILINTA) PO SCH ×2 (10:02→20:19)
[2017-09-03] MEDS: lisINopril 5 MG (PRINIVIL) TABLET PO SCH (10:03)
[2017-09-03] MEDS: RIVAROXABAN 20 MG TABLET (XARELTO) PO SCH (16:17)
[2017-09-03] MEDS ORDERED: warFARin 5 MG (COUMADIN) TAB PO SCH (18:00)
[2017-09-04] VITALS: BP 108/70
[2017-09-04] MEDS: NS IV 1000 ML 1,000 ML IV SCH (01:00)
[2017-09-04 03:34] LABS: HEMOGLOBIN 12.8 G/DL (13.3-17.7); MEAN PLATELET VOLUME 9.9 FL (7.4-10.4); RED BLOOD COUNT 4.01 10^6/uL (4.35-5.85); RED CELL DISTRIBUTION WIDTH 13.9 % (10.0-14.5); WHITE BLOOD COUNT 5.5 10^3/uL (4.3-11.0)
[2017-09-04 03:44] LABS: INR 1.7 (0.8-1.4); PROTHROMBIN TIME PATIENT 20.4 SEC (12.2-14.7)
[2017-09-04 03:56] LABS: BUN/CREATININE RATIO 14; CALCIUM 8.5 MG/DL (8.5-10.1); CARBON DIOXIDE 21 MMOL/L (21-32); CHLORIDE 111 MMOL/L (98-107); CREATININE SERUM 0.77 MG/DL (0.60-1.30); GFR ESTIMATED > 60; GLUCOSE 94 MG/DL (70-105); MAGNESIUM 1.9 MG/DL (1.8-2.4); POTASSIUM 3.8 MMOL/L (3.6-5.0); SODIUM 142 MMOL/L (135-145)
[2017-09-04 04:00] VITALS: BP 124/83
[2017-09-04] MEDS: AMIODARONE 200 MG (CORDARONE) TAB PO SCH ×2 (07:37→20:02)
[2017-09-04] MEDS: PANTOPRAZOLE 40 MG (PROTONIX) TAB PO SCH (07:38)
[2017-09-04] MEDS: ASPIRIN E.C. 81 MG (ECOTRIN) TAB PO SCH (07:38)
[2017-09-04] MEDS: TICAGRELOR 90 MG TABLET (BRILINTA) PO SCH ×2 (07:38→20:03)
[2017-09-04] MEDS: OMEGA 3 (FISH OIL) 1000 MG CAP PO SCH ×2 (07:38→18:30)
[2017-09-04] MEDS: lisINopril 5 MG (PRINIVIL) TABLET PO SCH (07:39)
[2017-09-04 07:41] VITALS: BP 137/88
[2017-09-04] MEDS ORDERED: NS IV 500 ML 500 ML IV ONE (08:00)
[2017-09-04] MEDS ORDERED: LIDOCAINE 2% VISCOUS 15 ML UDC PO NR (08:00)
[2017-09-04] MEDS ORDERED: proPOfol 200 MG/20 ML (DIPRIVAN) VIAL IV ONE (08:20)
[2017-09-04] MEDS ORDERED: MIDAZOLAM 2 MG/2 ML (VERSED) VIAL ONE (08:20)
--- NOTE | 2017-09-04 08:55 | Progress Note-Standard ---
Standard Progress Note Progress Notes/Assess & Plan Date Seen by Provider: Sep 03, 2017 Time Seen by Provider: 07:45 Progress/Assessment & Plan consultation for sedation. diagnosis new onset afib. asa 3 . mac sedation. 2mg versed and 80mg propofol given iv. start time 0745 end time 0820. tolerated procedure well. CAROLANN WINSTON CRNA Sep 04, 2017 08:55
--- NOTE | 2017-09-04 09:01 | Anesthesia-Procedure Note ---
Procedures/Interventions Procedure Start/Stop/Diagnosis Date of Procedure: Sep 04, 2017 Start Time: 08:27 Preprocedural Diagnosis: atrial flutter Brief History [id number] Called to ICU 4 for cardioversion. Patient is known to me and had previous successful EDWIN/Cardioversion the day before (09-03-17). At some point this am, patient converted back to Atrial flutter and Dr. Espinoza is present for Cardioversion. Patient has NKDA. O2 per NC. He was given 100 mg total of Propofol prior to the procedure. We stayed with patient until he awoke. Patient tolerated the procedure well and denies complaints. Stop Time: 08:40 JOLENE CAPUTO CRNA Sep 04, 2017 09:01
--- NOTE | 2017-09-04 09:38 | Progress Note-Cardiology ---
Cardiology SOAP Progress Note Subjective: No cp or palp or syncope or shortness of breath today Objective: I&O/Vital Signs 09/04/17 09/04/17 09/04/17 09/04/17 00:00 00:00 01:00 04:00 Temp 98.0 98.9 Pulse 87 111 87 Resp 16 14 B/P (MAP) 108/70 (83) 124/83 (97) Pulse Ox 96 96 O2 Delivery Room Air Room Air Room Air 09/04/17 09/04/17 04:00 07:41 Temp 98.9 Pulse 91 Resp 17 B/P (MAP) 137/88 (104) Pulse Ox 98 O2 Delivery Room Air Room Air Weight (Pounds): 174 Weight (Ounces): 0.0 Weight (Calculated Kilograms): 78.083035 Constitutional: AAO x 3, well-developed, well-nourished Respiratory: No accessory muscle use; lungs clear to percussion, lungs clear to auscultation Cardiovascular: irregularly irregular, S1 and S2, systolic murmur (Faint ROXANA at card base) Gastrointestional: No tender; soft; No guarding, No rebound; audible bowel sounds Extremities: No clubbing, No cyanosis, No significant edema Neurologic/Psychiatric: oriented x 3, grossly intact, power is 5/5 both on sides Skin: No rash on exposed areas, No ulcerations on exposed areas Results/Procedures: Labs Laboratory Tests 09/04/17 03:05: White Blood Count 5.5, Red Blood Count 4.01L, Hemoglobin 12.8L, Hematocrit 37L, Mean Corpuscular Volume 93, Mean Corpuscular Hemoglobin 32, Mean Corpuscular Hemoglobin Concent 35, Red Cell Distribution Width 13.9, Platelet Count 120L, Mean Platelet Volume 9.9, Prothrombin Time 20.4H, INR Comment 1.7H, Sodium Level 142, Potassium Level 3.8, Chloride Level 111H, Carbon Dioxide Level 21, Anion Gap 10, Blood Urea Nitrogen 11, Creatinine 0.77, Estimat Glomerular Filtration Rate > 60, BUN/Creatinine Ratio 14, Glucose Level 94, Calcium Level 8.5, Magnesium Level 1.9, B-Type Natriuretic Peptide 352.8H Laboratory Tests 09/03/17 03:05 09/04/17 03:05 A/P: Assessment: Non-ST elevation myocardial infarction, status post cardiac catheterization and ROJAS stenting of LAD (Alp Xience 3.5x23) by Dr Ojeda on 09/02/17, slow flow in the distal LAD that improved after intracoronary nitroglycerin Ischemic cardiomyopathy with LVEF 30 on cath of 09/02/17 and 35-40% on EDWIN of Congestive heart failure, acute systolic, clinically compensated PAF, resistant to elec cardioversion on 09/03/17; converted to NSR after iv amio on 09/03/17 and elec cardioversion on 09/04/17 Gastroesophageal reflux disease H/o hypertension LDL-C 51 Plan: * 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
[2017-09-04 12:00] VITALS: BP 116/79
--- NOTE | 2017-09-04 13:20 | OPERATIVE REPORT ---
DATE OF SERVICE: 09/04/2017 PREOPERATIVE DIAGNOSIS: Atrial fibrillation. POSTOPERATIVE DIAGNOSIS: Sinus rhythm with premature atrial contractions. PROCEDURE PERFORMED: External electrical cardioversion. SURGEON: Soy Espinoza MD, MADDISON, FACP, FACC DESCRIPTION OF PROCEDURE: External electrical cardioversion was carried out after having obtained an informed consent. The nurse expedition supervisor provided short acting anesthesia. A 100 joules of synchronized biphasic shock was delivered through external patches, which converted atrial flutter/fibrillation to sinus rhythm with premature atrial contractions. He tolerated the procedure well. Job ID: [id number] DocumentID: [id number] Dictated Date: 09/04/2017 09:44:57 Roadmaster Date: 09/04/2017 13:20:10 Dictated By: SOY ESPINOZA MD, MADDISON, FACP, FACC,
[2017-09-04 17:00] VITALS: BP 101/65
[2017-09-04] MEDS: RIVAROXABAN 20 MG TABLET (XARELTO) PO SCH (18:30)
[2017-09-04 20:38] VITALS: BP 101/66
[2017-09-05] VITALS: BP 113/71
[2017-09-05 03:56] VITALS: BP 115/76
[2017-09-05 05:58] LABS: BASOPHILS % (AUTO) 0 % (0-10); EOSINOPHILS # (AUTO) 0.1 10^3/uL (0.0-0.3); EOSINOPHILS % (AUTO) 2 % (0-10); HEMATOCRIT 35 % (40-54); LYMPHOCYTES # (AUTO) 0.8 X 10^3 (1.0-4.0); LYMPHOCYTES % (AUTO) 15 % (12-44); MEAN CORPUSCULAR HEMOGLOBIN 32 PG (25-34); MEAN CORPUSCULAR HGB CONC 35 G/DL (32-36); MEAN CORPUSCULAR VOLUME 94 FL (80-99); MEAN PLATELET VOLUME 10.1 FL (7.4-10.4); MONOCYTES # (AUTO) 0.7 X 10^3 (0.0-1.0); MONOCYTES % (AUTO) 13 % (0-12); NEUTROPHILS # (AUTO) 3.9 X 10^3 (1.8-7.8); NEUTROPHILS % (AUTO) 70 % (42-75); PLATELET COUNT 117 10^3/uL (130-400); RED BLOOD COUNT 3.71 10^6/uL (4.35-5.85); RED CELL DISTRIBUTION WIDTH 13.9 % (10.0-14.5); WHITE BLOOD COUNT 5.6 10^3/uL (4.3-11.0)
[2017-09-05 06:16] LABS: ALANINE AMINOTRANSFERASE 36 U/L (0-55); ALBUMIN 3.5 GM/DL (3.2-4.5); ALKALINE PHOSPHATASE 76 U/L (40-136); BILIRUBIN,TOTAL 1.7 MG/DL (0.1-1.0); BUN/CREATININE RATIO 20; CALCIUM 8.6 MG/DL (8.5-10.1); CARBON DIOXIDE 20 MMOL/L (21-32); CHLORIDE 112 MMOL/L (98-107); CREATININE SERUM 0.87 MG/DL (0.60-1.30); GFR ESTIMATED > 60; GLUCOSE 99 MG/DL (70-105); MAGNESIUM 1.9 MG/DL (1.8-2.4); POTASSIUM 3.7 MMOL/L (3.6-5.0); SODIUM 141 MMOL/L (135-145); TOTAL PROTEIN 5.6 GM/DL (6.4-8.2)
[2017-09-05] MEDS: OMEGA 3 (FISH OIL) 1000 MG CAP PO SCH (06:17)
[2017-09-05] MEDS: PANTOPRAZOLE 40 MG (PROTONIX) TAB PO SCH (06:17)
[2017-09-05] MEDS: lisINopril 5 MG (PRINIVIL) TABLET PO SCH (08:32)
[2017-09-05] MEDS: TICAGRELOR 90 MG TABLET (BRILINTA) PO SCH (08:32)
[2017-09-05] MEDS: AMIODARONE 200 MG (CORDARONE) TAB PO SCH (08:32)
[2017-09-05] MEDS: ASPIRIN E.C. 81 MG (ECOTRIN) TAB PO SCH (08:32)
[2017-09-05 08:57] VITALS: BP 108/59
[2017-09-05] MEDS ORDERED: RIVA20TA PO (10:40)
[2017-09-05] MEDS ORDERED: AMIO200T2 PO (10:40)
[2017-09-05] MEDS ORDERED: TICA90TA PO (10:40)
[2017-09-05] MEDS ORDERED: LISI-556 PO (10:40)
[2017-09-05] MEDS ORDERED: METO-387 PO (10:40)
[2017-09-05] MEDS ORDERED: ASPI-999 PO (10:40)
[2017-09-05] MEDS ORDERED: PRAV10TA PO (10:41)
--- NOTE | 2017-09-05 10:42 | Discharge Inst-Cardiology ---
Discharge Inst-Cardiac Discharge Medications New Medications: Aspirin (Aspirin) 81 Mg Tab.chew 81 MG PO DAILY, #30 TAB Pravastatin Sodium (Pravastatin Sodium) 10 Mg Tablet 10 MG PO DAILY for 30 Days, #30 TAB 5 Refills Amiodarone HCl (Amiodarone HCl) 200 Mg Tablet 400 MG PO BID for 30 Days, #60 TAB 5 Refills Lisinopril (Lisinopril) 5 Mg Tablet 5 MG PO DAILY for 30 Days, #30 TAB 5 Refills Metoprolol Succinate (Metoprolol Succinate) 25 Mg Tab.er.24h 25 MG PO DAILY for 30 Days, #30 TAB 5 Refills Rivaroxaban (Xarelto) 20 Mg Tablet 20 MG PO DAILY@1700 for 30 Days, #30 TAB 5 Refills Ticagrelor (Brilinta) 90 Mg Tablet 90 MG PO BID for 30 Days, #60 TAB 5 Refills LEANN SIMS MD FACP [facility] CCDS Sep 05, 2017 10:42
--- NOTE | 2017-09-05 10:43 | Discharge Inst-Post CATH ---
Discharge Inst-CATH Post Cardiac Cath D/C Inst Follow Up/Plan F/u with Dr Ojeda next week CARDIAC CATH DISCHARGE INSTRUCTIONS *Hold Metformin for 48 hours post heart cath. ACTIVITY * Go Home directly and rest. * Limit activity of the leg (or wrist if it was used) for 7 days including aerobics, swimming, jogging, bicycling, etc. * Restrict stair-climbing for 7 days if possible, if not, climb up with your non -cath leg, then bring together on the same step. * Avoid lifting, pushing, pulling or excessive movement of the affected extremity for 7 days. * Customary sexual activity may be resumed after 2 days-use caution not to use a position that strains or causes pain to the affected extremity. * No driving for 24 hours. * NO SMOKING. * Avoid straining for bowel movements for 7 days. * Gentle walking on level ground is allowed. * Returning to work will depend on the type of procedure and the results. Your doctor will discuss this with you. CALL YOUR DOCTOR FOR ANY OF THE FOLLOWING: *If bleeding from the puncture site occurs- Apply gentle pressure to site with clean cloth and call your doctor or EMS. * If a knot or lump forms under the skin, increases in size, or causes pain. * If bruising appears to be worsening or moving further down your leg instead of disappearing. * Temperature above 101 F. CARE OF YOUR GROIN INCISION; * Bruising or purple discoloration of the skin near the puncture site is common. * You may shower only, no bathtub bathing for 5 days. Be careful to avoid slipping as your leg may feel stiff. * If a closure device was used on your femoral artery, please see the attached guide regarding care of the device and your leg. * REMOVE the dressing from your groin the next day after your procedure in the shower. CARE OF YOUR WRIST INCISION; * Bruising or purple discoloration of the skin near the puncture site is common. * You may shower. * DO NOT submerge wrist. * Remove dressing in 24 hours. LEANN SIMS MD FACP [facility] CCDS Sep 05, 2017 10:43
[2017-09-05 11:30] VITALS: BP 108/59
--- NOTE | 2017-09-05 17:07 | Progress Note-Cardiology ---
Cardiology SOAP Progress Note Subjective: No cp or palp or syncope or shortness of breath or leg swelling Feels better after elec CV yesterday Objective: I&O/Vital Signs 09/05/17 09/05/17 09/05/17 09/05/17 07:00 08:00 08:57 11:30 Temp 97.5 Pulse 74 69 69 Resp 20 20 B/P (MAP) 108/59 (75) 108/59 Pulse Ox 95 95 O2 Delivery Room Air Room Air Room Air 09/05/17 00:00 Intake Total 950 ml Balance 950 ml Weight (Pounds): 176 Weight (Ounces): 8.0 Weight (Calculated Kilograms): 80.540531 Constitutional: AAO x 3, well-developed, well-nourished Respiratory: No accessory muscle use; lungs clear to percussion, lungs clear to auscultation Cardiovascular: irregularly irregular, S1 and S2, systolic murmur (Faint ROXANA at card base) Gastrointestional: No tender; soft; No guarding, No rebound; audible bowel sounds Extremities: No clubbing, No cyanosis, No significant edema Neurologic/Psychiatric: oriented x 3, grossly intact, power is 5/5 both on sides Skin: No rash on exposed areas, No ulcerations on exposed areas Results/Procedures: Labs Laboratory Tests 09/05/17 05:40: White Blood Count 5.6, Red Blood Count 3.71L, Hemoglobin 12.0L, Hematocrit 35L, Mean Corpuscular Volume 94, Mean Corpuscular Hemoglobin 32, Mean Corpuscular Hemoglobin Concent 35, Red Cell Distribution Width 13.9, Platelet Count 117L, Mean Platelet Volume 10.1, Neutrophils (%) (Auto) 70, Lymphocytes (%) (Auto) 15 , Monocytes (%) (Auto) 13H, Eosinophils (%) (Auto) 2, Basophils (%) (Auto) 0, Neutrophils # (Auto) 3.9, Lymphocytes # (Auto) 0.8L, Monocytes # (Auto) 0.7, Eosinophils # (Auto) 0.1, Basophils # (Auto) 0.0, Sodium Level 141, Potassium Level 3.7, Chloride Level 112H, Carbon Dioxide Level 20L, Anion Gap 9, Blood Urea Nitrogen 17, Creatinine 0.87, Estimat Glomerular Filtration Rate > 60, BUN/ Creatinine Ratio 20, Glucose Level 99, Calcium Level 8.6, Magnesium Level 1.9, Total Bilirubin 1.7H, Aspartate Amino Transf (AST/SGOT) 45H, Alanine Aminotransferase (ALT/SGPT) 36, Alkaline Phosphatase 76, Total Protein 5.6L, Albumin 3.5, Thyroid Stimulating Hormone (TSH) 3.06 Laboratory Tests 09/04/17 03:05 09/05/17 05:40 A/P: Assessment: Non-ST elevation myocardial infarction, status post cardiac catheterization and ROJAS stenting of LAD (Alp Xience 3.5x23) by Dr Ojeda on 09/02/17, slow flow in the distal LAD that improved after intracoronary nitroglycerin Ischemic cardiomyopathy with LVEF 30 on cath of 09/02/17 and 35-40% on EDWIN of Congestive heart failure, acute systolic, clinically compensated PAF, resistant to elec cardioversion on 09/03/17; converted to NSR after iv amio on 09/03/17 and elec cardioversion on 09/04/17 Gastroesophageal reflux disease H/o hypertension LDL-C 51 Plan: * I 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 He feels well and wishes to go home * We are continuing current regimen * Although LDL-C is below 70 mg/dL, we are adding low dose statin with the aim of plaque stabilization * He in on dual antiplatelet and OAC, as recommended by his wholesale representative, Dr Ojeda. We have recommended f/u with Dr Ojeda next week * We have advised return to ER in case of any recurrence of symptoms or new symptoms Clinical Quality Measures AMI/AHF: ASA po Prior to arrival: Yes LEANN SIMS MD FACP FAC CCDS Sep 05, 2017 17:07
--- NOTE | 2017-09-05 17:08 | Cardiology Discharge Summary ---
Diagnosis/Chief Complaint Date of Admission Sep 02, 2017 at 13:20 Date of Discharge Sep 05, 2017 at 11:30 Final/Discharge Diagnosis Non-ST elevation myocardial infarction, status post cardiac catheterization and ROJAS stenting of LAD (Alp Xience 3.5x23) by Dr Ojeda on 09/02/17, slow flow in the distal LAD that improved after intracoronary nitroglycerin Ischemic cardiomyopathy with LVEF 30 on cath of 09/02/17 and 35-40% on EDWIN of Congestive heart failure, acute systolic, clinically compensated PAF, resistant to elec cardioversion on 09/03/17; converted to NSR after iv amio on 09/03/17 and elec cardioversion on 09/04/17 Gastroesophageal reflux disease H/o hypertension LDL-C 51 Chief Complaint/HPI Chief Complaint/HPI For condition at d/c, please refer to the progress note of the same date (09/05/17 ) Discharge Summary Discussion & Recommendations Home Medications Reviewed patient Home Medication Reconciliation performed by pharmacy medication reconciliations systems protection technician and/or nursing. Patients Allergies have been reviewed. Discharge Home Medications: Reviewed and agree with Discharge Medication list on patient's Discharge Instruction sheet Instructions to patient/family F/u with Dr Ojeda next week Clinical Quality Measures AMI/AHF: ASA po Prior to arrival: Yes DVT/VTE Risk/Contraindication: Risk Factor Score Per Nursin RFS Level Per Nursing on Admit: 2=Moderate LAENN SIMS MD FACP FACC CCDS Sep 05, 2017 17:08
== END 2017-09-05 11:30 | disposition home or self-care (01) | DRG 246 ==
LOC: EDUNIT# 00:34 → ER 00:37 → CATH 07:15 → ICU 09:04 → CATH 13:20 → UNDOADMIN 13:20 → ICU 13:20 → CATH 13:23 → ICU 09-04 12:05 → 4TH 09-04 12:05 → UNDODISIN 09-05 11:30
PROVIDERS: ADMIT Internal Medicine Cardiovascular Disease; ATTEND Internal Medicine Cardiovascular Disease
PROC: 027034Z Dilation of Coronary Artery, One Artery with Drug-eluting Intraluminal Device, Percutaneous Approach (ICD-10-PCS; principal; 2017-09-02)
PROC: 4A023N7 Measurement of Cardiac Sampling and Pressure, Left Heart, Percutaneous Approach (ICD-10-PCS; 2017-09-02)
PROC: B2111ZZ Fluoroscopy of Multiple Coronary Arteries using Low Osmolar Contrast (ICD-10-PCS; 2017-09-02)
PROC: B2151ZZ Fluoroscopy of Left Heart using Low Osmolar Contrast (ICD-10-PCS; 2017-09-02)
PROC: 5A2204Z Restoration of Cardiac Rhythm, Single (ICD-10-PCS; 2017-09-03)
PROC: 5A2204Z Restoration of Cardiac Rhythm, Single (ICD-10-PCS; 2017-09-04)
DX: I21.4 Non-ST elevation (NSTEMI) myocardial infarction (principal); I50.21 Acute systolic (congestive) heart failure; I25.110 Atherosclerotic heart disease of native coronary artery with unstable angina pectoris; I48.0 Paroxysmal atrial fibrillation; I11.0 Hypertensive heart disease with heart failure; I25.5 Ischemic cardiomyopathy; I49.1 Atrial premature depolarization; I49.3 Ventricular premature depolarization; K21.9 Gastro-esophageal reflux disease without esophagitis; E78.5 Hyperlipidemia, unspecified; Z87.891 Personal history of nicotine dependence
CPT/HCPCS: 36415; 71045; 80048; 80053; 80061; 83690; 83735; 83874; 83880; 84443; 84484; 85025; 85027; 85347; 85610; 85730; 93005; 93041; 93320; 93325; 93458

== ENCOUNTER → 2017-09-19 | Outpatient (CLI) | payer MEDICARE, OTHER ==
[~2017-09-19] MED LIST: AMIO200T2 PO; ASPI-999 PO; LISI-556 PO; METO-387 PO; PRAV10TA PO; RIVA20TA PO; TICA90TA PO
--- NOTE | 2017-09-19 11:37 | Diagnostic Imaging Report ---
PROCEDURE: CT abdomen and pelvis without contrast. TECHNIQUE: Multiple contiguous axial images were obtained through the abdomen and pelvis without the use of intravenous contrast. INDICATION: Gross hematuria for three weeks. COMPARISON: No prior studies are available for comparison. FINDINGS: The lung bases are clear. The heart is enlarged. No discrete liver mass is identified. The gallbladder is unremarkable. The pancreas and spleen are unremarkable. There appears to be some mild low-density enlargement of bilateral adrenal glands, greatest on the left measuring 2.3 cm. This most likely represents bilateral adrenal adenomas. No renal calculi are seen. There is a suggestion of high density in the left renal collecting system in the region of the left lower pole infundibulum with possible fluid fluid level. This may represent blood. No hydronephrosis is seen. Aorta is non-aneurysmal. No definite central retroperitoneal or mesenteric lymphadenopathy is seen. Small and large bowel loops are normal caliber. There is sigmoid diverticulosis without acute diverticulitis. Bladder is decompressed. Prostate is enlarged measuring 5.2 x 5.9 cm. Bony structures are nonacute. IMPRESSION: 1. Uncomplicated diverticulosis. 2. Bilateral low-density adrenal masses suggestive of adenomas. 3. Findings of questionable high density with fluid fluid level in the left renal collecting system lower pole infundibulum and renal pelvis. The features are concerning for hemorrhage. Underlying urothelial lesion cannot be excluded. Retrograde study may be useful for further evaluation. 4. Prostatomegaly. Dictated by: Dictated on workstation # [id number]
== END ==
LOC: RAD 10:53
PROVIDERS: ATTEND Urology
DX: K57.30 Diverticulosis of large intestine without perforation or abscess without bleeding (principal); N40.0 Benign prostatic hyperplasia without lower urinary tract symptoms; E27.8 Other specified disorders of adrenal gland; R31.0 Gross hematuria
CPT/HCPCS: 74176

== ENCOUNTER 2017-11-27 07:36 | Outpatient (CLI) | payer MEDICARE, OTHER ==
[~2017-11-27] VITALS: Ht 185.4 cm; Wt 79.4 kg
[~2017-11-27 07:36] MED LIST changes: -AMIO200T2 PO; +AMIO200T4 PO; +CLOP75TA69 PO; +FINA5TAB PO; +PANT40TA2 PO; +PRD10T PO; +TAMS0.4C98 PO
[2017-11-27] MEDS ORDERED: ASPI-586 PO (09:46)
[2017-11-27] MEDS ORDERED: METO-387 PO (09:46)
[2017-11-28] MEDS ORDERED: APIX5TAB PO (11:58)
== END 2017-11-27 09:52 | disposition home or self-care (01) ==
LOC: PREOP 07:36
PROVIDERS: ATTEND Internal Medicine
DX: Z01.818 Encounter for other preprocedural examination (principal)

== ENCOUNTER 2017-11-28 08:56 | Day surgery (SDC) | payer MEDICARE, OTHER ==
[~2017-11-28] VITALS: Ht 185.4 cm; Wt 79.4 kg
[~2017-11-28 08:56] MED LIST changes: +ASPI-586 PO
[2017-11-28] MEDS ORDERED: D5 LR IV SOLUTION 1,000 ML IV STA (09:05)
[2017-11-28] MEDS ORDERED: LIDOCAINE JELLY 2% (XYLOCAINE) 5 ML TUBE MM PRN (09:15)
[2017-11-28] MEDS ORDERED: MIDAZOLAM 2 MG/2 ML (VERSED) VIAL IVP ONE (09:15)
[2017-11-28] MEDS ORDERED: fentaNYL INJECTION 100 MCG/2 ML AMP IVP ONE (09:15)
[2017-11-28 09:37] VITALS: BP 124/79
--- NOTE | 2017-11-28 09:55 | Pre-Op Note & Conscious Sedat ---
Pre-Operative Progress Note H&P Reviewed The H&P was reviewed, patient examined and no changes noted. Date H&P Reviewed: Nov 28, 2017 Time H&P Reviewed: 09:54 Conscious Sedation Pre-Proced ASA Class: 3 Airway Mallampati Classification: ([place] appropriate class) I. II. III, IV Lungs Heart ASA score ASA 1: a normal healthy patient ASA 2: a patient with a mild systemic disease (mid diabetes, controlled hypertension, obesity ASA 3: a patient with a severe systemic disease that limits activity (angina , COPD, prior Myocardial infarction) ASA 4: a patient with an incapacitating disease that is a constant threat to life (CHF, renal failure) ASA 5: a moribund patient not expected to survive 24 hrs. (ruptured aneurysm) ASA 6: a declared brain patient whose organs are being harvested. For emergent operations, add the letter E after the classification Grade 1 Sedation Plan: Analgesia, Amnesia, Plan communicated to team members, Discussed options with patient/fam, Discussed risks with patient/fam Note The patient is an appropriate candidate to undergo the planned procedure, sedation, and anesthesia. The patient immediately re-assessed prior to indication. NIKKI GILMAN MD Nov 28, 2017 09:54
[2017-11-28] MEDS ORDERED: HURRICAINE EXT TUBE (BENZOCAINE) ONE (10:15)
[2017-11-28] MEDS ORDERED: LIDOCAINE JELLY 2% (XYLOCAINE) 5 ML TUBE ONE (10:15)
[2017-11-28] MEDS ORDERED: MIDAZOLAM 2 MG/2 ML (VERSED) VIAL ONE ×3 (10:15)
[2017-11-28] MEDS ORDERED: fentaNYL INJECTION 100 MCG/2 ML AMP ONE ×2 (10:15)
[2017-11-28] MEDS ORDERED: NS IV 500 ML 500 ML IV SCH (11:04)
[2017-11-28] MEDS ORDERED: IRON DEXTRAN 25 MG/NS 6.25 ML TOTAL VOLUME IV ONE ×3 (11:15)
[2017-11-28] MEDS ORDERED: EPINEPHrine INJECTION 1 MG/ML AMP IM PRN (11:15)
[2017-11-28] MEDS ORDERED: HYDROCORTISONE 100 MG/2 ML (Solu-CORTEF) VIAL IV PRN (11:15)
[2017-11-28] MEDS ORDERED: IRON DEXTRAN 1,000 MG/NS 250 ML IVPB IV ONE ×2 (11:15)
[2017-11-28] MEDS ORDERED: RT-ALBUTEROL SULF 2.5 MG/3 ML PRE-MIX VIAL IH PRN (11:15)
[2017-11-28] MEDS ORDERED: diphenhydrAMINE 50 MG/ML INJ (BENADRYL) IV PRN (11:15)
[2017-11-28] MEDS ORDERED: NS IV 500 ML 500 ML ONE (11:34)
[2017-11-28 11:40] VITALS: BP 129/71
[2017-11-28] MEDS ORDERED: APIX5TAB PO (11:58)
[2017-11-28] MEDS ORDERED: HURRICAINE EXT TUBE (BENZOCAINE) XX ONE (12:00)
[2017-11-28 12:10] VITALS: BP 97/60
[2017-11-28 14:35] VITALS: BP 101/62
--- NOTE | 2017-11-28 18:59 | OPERATIVE REPORT ---
DATE OF SERVICE: 11/28/2017 PANENDOSCOPY SUMMARY PROCEDURE PERFORMED: For evaluation of GI bleeding with secondary anemia. DESCRIPTION OF PROCEDURE: The patient was placed in the left lateral decubitus position. Prior to undergoing colonoscopy, digital rectal evaluation was performed. Anal sphincter tone was normal and the perianal reflex was intact. Prostate is moderate to severely enlarged. The more distal aspect of the left prostatic lobe is firm. Elsewhere, there is normal consistency of again a moderate to severely enlarged prostate. No other abnormalities noted on digital inspection of the anal canal or distal rectal vault. The colonoscope was then inserted into the rectum under direct visualization and advanced to the cecum. The cecum was identified by identification of the ileocecal valve and cecal strap. Photographic documentation was obtained. Careful inspection was made as the colonoscope was withdrawn. FINDINGS: There is no evidence for internal or external hemorrhoids. The rectum was unremarkable. A moderate number of small to medium size sigmoid diverticulum were present without evidence for diverticulitis. No blood was noted throughout the colon and no colonic telangiectasia were noted. The descending colon was unremarkable as was the splenic flexure present in the distal transverse colon was a diminutive 4 mm sessile polyp that was not ulcerated. No stigmata to suggest recent bleeding. The remainder of the transverse colon was unremarkable. The hepatic flexure and ascending colon were unremarkable. There was a 4 mm nonulcerated polyp on the upper lip of the ileocecal valve as well as another 6 mm sessile nonulcerated polyp with benign features noted in the cecum. All polyps were left due to the patient's ongoing need for Plavix and Novel oral anticoagulant therapy due to recent drug-eluting stent placement with chronic atrial fibrillation. We then proceeded. ASSESSMENT: 1. Moderate to severe prostatic hypertrophy is present. The more distal aspect of the right prostatic lobe is firm to palpation, suspicious for possible malignancy. The patient is being followed by Dr. Padilla and reportedly, had a PSA around 9. 2. Three small benign appearing polyps were noted and left, none with malignant features and none with stigmata to suggest recent bleeding or the likely source of this patient's GI bleed. 3. Moderate diverticular disease predominantly noted in the sigmoid colon was present without evidence for diverticulitis. We then proceeded with EGD evaluation. The endoscope was inserted in the oral cavity and under direct visualization, the esophagus was intubated. The endoscope was passed down the esophagus, stomach and second portion of duodenum. Careful inspection was made as the scope was withdrawn. The patient tolerated the procedure well. FINDINGS: The oral cavity was unremarkable. The epiglottis, arytenoid aperture, true and false vocal folds were unremarkable. No telangiectasias were noted. The proximal, mid and distal esophagus were unremarkable. There is a small sliding hiatal hernia present without evidence for erosive esophagitis or Rodriguez's change. Present in the cardia and fundus of the stomach were multiple small anywhere from 2 to 4 mm areas of telangiectatic areas, none were ulcerated and there was no evidence for blood in the upper GI tract. No ulcerations or inflammatory change were noted in the stomach, pylorus, pyloric channel, duodenal bulb or second portion of duodenum of the small intestine. The proximal small intestine visualized. No telangiectatic areas were noted. 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 Locations in the fundus and cardia of the stomach. There was no evidence for blood in the upper GI tract, but I suspect that one of these lesions were the most likely cause of blood loss. A small hiatal hernia was noted without evidence for erosive esophagitis. We did switching the patient from Xarelto to Eliquis 5 mg b.i.d. As the patient still has significant anemia and has had a fair amount of blood loss. After discussion, he is agreeable to receiving 1 gram of iron dextran IV as he has been intolerant of oral iron. This was given following endoscopy. We will discuss in the future whether or not small polyps he has warrant return colonoscopy for removal.The patient was evaluated before and during iron administration with stable vital signs and normal cardiac skin and pulmonary evaluation on physical examination. with discussion of iron therapy and side effects and extra 20 minutes care time spent. Job ID: [id number] DocumentID: [id number] Dictated Date: 11/28/2017 12:15:57 Milking Machine Mechanic Date: 11/28/2017 18:58:26 Dictated By: NIKKI GILMAN MD [facility]ITALAdamaris
--- NOTE | 2017-12-09 09:20 | HISTORY AND PHYSICAL ---
PANENDOSCOPY H AND P HISTORY OF PRESENT ILLNESS: The patient is an 82-year-old white male seen for followup of GI bleed with secondary anemia on the 26 of November. Roughly three weeks ago, he had several episodes of melanotic stool and then developed progressive fatigue. I saw him in the office little over a week ago at which time he was quite pale with a hemoglobin level of 6.8 and his MCV was normal, but lower than it had been at 88.5. The remainder of the CBC was unremarkable. He underwent 2 units of packed cells transfusion as he was quite symptomatic and was started on pantoprazole. 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 PAST MEDICAL HISTORY: Significant for an acute PR. A little over 2-1/2 months ago at which time he underwent stent placement in the proximal LAD drug-eluting. His course was complicated by the onset of atrial fibrillation, so he has been on Plavix 75 mg daily and Xarelto 20 mg daily. After his GI bleeding, his Plavix was continued, but Xarelto was discontinued. He has no known history of cerebrovascular disease or embolic event. He stated that they did want to attempt three months of amiodarone, but he was having significant fatigue, tremor, balance problems and so he discontinued it one month ago and balance and tremor issues resolved. He last underwent colonoscopy over 10 years ago and did not recall any problems with polyps. It was done Dr. Garnett. He has had no known past history of peptic ulcer disease. PHYSICAL EXAMINATION: GENERAL: Reveals slightly pale white male in bed, appearing better and doing better, able to go out for walks without chest symptoms and significant improvement in dyspnea on exertion after blood transfusion last week. His weight was up 1 pound to 180.6, blood pressure 120/90. HEENT: Unremarkable. Nasal turbinates; however, were not inspected. CHEST: Clear to auscultation. CARDIOVASCULAR: Reveals an irregular rhythm, heart rate in the low 70s without significant murmur, S3 or S4. ABDOMEN: Soft, supple without mass, organomegaly, or tenderness. EXTREMITIES: Reveal no cyanosis, clubbing or edema. ASSESSMENT AND PLAN: History of GI bleed with secondary anemia. The patient has been set up for panendoscopy. He is at increased risk due to the need for aspirin. Start the need for Plavix as he is 11 weeks out from drug-eluting stent placement in the proximal LAD lesion and has chronic atrial fibrillation as a result of ischemic cardiomyopathy. His Xarelto is being held. He will continue on Plavix. For this reason, we will not be giving any therapeutic or likely diagnostic biopsy unless there is evidence for a lesion suspicious for malignancy. We will have to bring him back at later dates for anything else after 6 months preferably. This is complex medical management. Prep instructions with Suprep kit were given and questions were answered. Job ID: [id number] DocumentID: [id number] Dictated Date: 11/26/2017 12:00:22 Ancillary Services Manager Therapy Date: 11/26/2017 12:35:53 Dictated By: NIKKI GILMAN MD <Dictated by NIKKI GILMAN MD> <Electronically signed by NIKKI GILMAN MD> 11/28/17 1237
== END 2017-11-28 14:35 | disposition home or self-care (01) ==
LOC: ENDO 08:56
PROVIDERS: ATTEND Internal Medicine
DX: K92.2 Gastrointestinal hemorrhage, unspecified (principal); D50.0 Iron deficiency anemia secondary to blood loss (chronic); K31.819 Angiodysplasia of stomach and duodenum without bleeding; K63.5 Polyp of colon; K57.30 Diverticulosis of large intestine without perforation or abscess without bleeding; K44.9 Diaphragmatic hernia without obstruction or gangrene; N40.0 Benign prostatic hyperplasia without lower urinary tract symptoms; I78.0 Hereditary hemorrhagic telangiectasia; I48.91 Unspecified atrial fibrillation; I25.5 Ischemic cardiomyopathy; Z79.01 Long term (current) use of anticoagulants; Z79.02 Long term (current) use of antithrombotics/antiplatelets; Z95.5 Presence of coronary angioplasty implant and graft

== ENCOUNTER → 2017-12-24 | Outpatient (CLI) | payer MEDICARE, OTHER ==
[~2017-12-24] MED LIST changes: +APIX5TAB PO
--- NOTE | 2017-12-24 09:31 | Diagnostic Imaging Report ---
PROCEDURE: CT abdomen without contrast. TECHNIQUE: Multiple contiguous axial images were obtained through the abdomen without the use of intravenous contrast. INDICATION: Bilateral adrenal masses The previous CT abdomen/pelvis exam of 09/19/17 noted bilateral low density adrenal masses. These were felt to be related to adenomas. On this exam the 2.3 CM low density mass associate with the left adrenal gland and the 0.7 CM low-density nodule arising from the right adrenal gland are again evident and unchanged in size or appearance. Consequently I do suspect that they are benign. The prior exam also noted a fluid fluid level within the left collecting system raising question of hemorrhage. That finding is not identified on this exam. The left kidney itself is unchanged when compared to the prior study as is the right kidney. The liver, spleen, pancreas, gallbladder, aorta and inferior vena cava also appear stable when compared to the prior exam. The stomach is partially filled fluid and consequently difficult to assess. There is no abdominal mass or free fluid collection evident. The images through lung bases again show cardiomegaly. There is no sign of failure or pneumonia. The bone windows are unremarkable for a fracture or for a destructive lesion. There is fairly severe degenerative disc and bony disease at L3-4, L4-5 and L5-S1. There does appear to be trefoil stenosis at L4-5 as well. IMPRESSION: 1. The low density masses arising from the adrenal gland seen on the prior study appear stable. Most likely these are benign processes such as adrenal adenomas. 2. The fluid/fluid level within the left renal pelvis seen on the prior study is no longer evident. 3. There is no acute abnormality of the abdomen. 4. There is cardiomegaly. 5. There is degenerative disc and bony disease involving the lower lumbar spine with the L4-5 level the most severely affected. 6. These results were discussed with Dr. Padilla. Dictated by: Dictated on workstation # [id number]
== END ==
LOC: RAD 08:04
PROVIDERS: ATTEND Urology
DX: E27.8 Other specified disorders of adrenal gland (principal); I51.7 Cardiomegaly; M51.36 Other intervertebral disc degeneration, lumbar region; M89.9 Disorder of bone, unspecified; N28.89 Other specified disorders of kidney and ureter
CPT/HCPCS: 74150

== ENCOUNTER → 2018-01-02 | Outpatient (CLI) | payer MEDICARE, OTHER | LOC: RT 14:08 | PROVIDERS: ATTEND Internal Medicine | DX: I48.91 Unspecified atrial fibrillation (principal); Z79.899 Other long term (current) drug therapy | CPT/HCPCS: 94060; 94726; 94729 ==

== ENCOUNTER 2018-06-12 08:54 | Outpatient (CLI) | payer MEDICARE, OTHER ==
[~2018-06-12] VITALS: Ht 185.4 cm; Wt 81.6 kg
[2018-06-12 09:00] VITALS: BP 134/84
[2018-06-12] MEDS ORDERED: ACETAMINOPHEN 500 MG TAB (TYLENOL) PO ONE (09:15)
[2018-06-12] MEDS ORDERED: IRON DEXTRAN 1,000 MG/NS 250 ML IVPB IV ONE ×2 (09:15)
[2018-06-12] MEDS ORDERED: IRON DEXTRAN 25 MG/NS 6.25 ML TOTAL VOLUME IV ONE ×3 (09:15)
--- NOTE | 2018-06-13 13:30 | HISTORY AND PHYSICAL ---
DATE OF SERVICE: OUTPATIENT PROCEDURE SUMMARY HISTORY OF PRESENT ILLNESS: The patient is an 82-year-old white male admitted to outpatient surgery center for IV iron for iron deficiency anemia caused by chronic epistaxis from hereditary hemorrhagic telangiectasia. Iron deficiency had been aggravating restless leg syndrome, which the patient does not normally have when iron levels are normal. He was anemic with a hemoglobin of 8 and MCV was low in the low 70s. He has been intolerant of oral iron and has had one other IV dose of iron sucrose 1 gram late last year. The patient has also been having increased problems with left hip pain radiating to the knee and we have made an appointment at [facility] for further evaluation, what I suspect is likely significant osteoarthritis of the left hip, although avascular necrosis in the differential diagnosis as well. Upon my arrival, the patient was receiving iron therapy and voicing no complaints. He denied chest discomfort or shortness of breath. He denied any problems with itching or urticaria. PAST MEDICAL HISTORY: Significant for coronary artery disease and in 08/2017, he presented with an acute NM involving the anterior wall and received a drug-eluting stent to the LAD. Course was further complicated by atrial fibrillation, which is persistent, but rate controlled. He has had no recent chest pain, orthopnea, PND or pedal edema. He was noticing some increased dyspnea on exertion; however. PHYSICAL EXAMINATION: GENERAL: Revealed a white male who appeared to be in no acute distress. VITAL SIGNS: Blood pressure was 134/84 with a heart rate of 90 and O2 saturation of 98% on room air. HEENT: Other than mild pallor, was unremarkable. CHEST: Clear to auscultation. CARDIOVASCULAR: Revealed a regular rate and rhythm without murmur, S3 or S4. EXTREMITIES: Reveal no cyanosis, clubbing or edema. ASSESSMENT AND PLAN: 1. Iron deficiency anemia secondary to intermittent epistaxis from hereditary hemorrhagic telangiectasia, undergoing IV iron. He will receive 1 gram of iron sucrose and I will see him back in the office in a month with repeat CBC. 2. Restless leg syndrome secondary to #1. Expect iron therapy should be the only medication necessary. If this is not the case, he is to return for repeat evaluation. 3. Chronic systolic heart failure secondary to coronary artery disease, compensated. Continue current medication. 4. Persistent atrial fibrillation. Continue Eliquis and Plavix with likely switch to a baby aspirin at one year pending Cardiology input on this. Job ID: [id number] DocumentID: [id number] Dictated Date: 06/12/2018 11:46:02 Fingerer Date: 06/12/2018 12:25:32 Dictated By: NIKKI GILMAN MD MTDD
== END 2018-06-12 10:50 | disposition home or self-care (01) ==
LOC: SDC 08:54
PROVIDERS: ATTEND Internal Medicine
DX: D50.9 Iron deficiency anemia, unspecified (principal); I50.20 Unspecified systolic (congestive) heart failure; I25.10 Atherosclerotic heart disease of native coronary artery without angina pectoris
CPT/HCPCS: 96365

== ENCOUNTER → 2018-11-18 | Outpatient (CLI) | payer MEDICARE, OTHER ==
[~2018-11-18] MED LIST changes: +CATHETER FLUSH 10 ML SYR IV PRN; +REGADENOSON 0.4 MG/5 ML SYR (LEXISCAN) IV ONE; -RIVA20TA PO; +RIVA20TA2 PO
--- NOTE | 2018-11-18 16:16 | STRESS TEST ---
DATE OF SERVICE: 11/18/2018 LEXISCAN MYOVIEW STRESS TEST REPORT REFERRING PHYSICIAN: Dr. Brandon. Baseline heart rate is 84, baseline blood pressure 144/95. Baseline EKG is atrial fibrillation with no ischemic changes. Occasional PVCs were noted. In summary, the patient was injected with 10.58 mCi of technetium-99 Myoview and the resting images were obtained. Then, the patient received 0.4 mg of Lexiscan followed by 30.3 mCi of technetium-99 Myoview. Throughout the test, the patient had occasional PVCs and ventricular couplets. No significant ischemic changes. The resting and stress images were reviewed and compared in the short axis, horizontal long axis, and vertical long axis views. Review of the images showed decreased uptake at the anterior wall and anterolateral wall with mild reversibility. SSS is 8, SDS 3, TID value 1.07. On the gated images, the left ventricle appeared to be prominent with end diastolic volume 128 mL, end systolic volume 70 mL, mild diffuse left ventricular hypokinesia with calculated ejection fraction 45%. CONCLUSION: 1. The patient tolerated Lexiscan well. 2. Baseline atrial fibrillation with occasional PVCs and ventricular couplet noted during test. No acute ischemic changes. 3. Mild reversible ischemia involving the anterior wall and anterolateral wall. 4. Prominent left ventricle with mild diffuse left ventricular hypokinesia, calculated ejection fraction 45%. Job ID: [id number] DocumentID: [id number] Dictated Date: 11/18/2018 15:49:30 Basket Sorter Date: 11/18/2018 16:15:56 Dictated By: PAWAN AKHTAR MD
== END ==
LOC: CARD 11:50
PROVIDERS: ATTEND Internal Medicine Cardiovascular Disease
DX: I48.2 Chronic atrial fibrillation (principal); I99.8 Other disorder of circulatory system; I25.10 Atherosclerotic heart disease of native coronary artery without angina pectoris; I10 Essential (primary) hypertension; I51.7 Cardiomegaly
CPT/HCPCS: 78452; 93017

== ENCOUNTER 2018-11-25 07:41 | Day surgery (SDC) | payer MEDICARE, OTHER ==
[2018-11-25] VITALS (9 sets, daily range): BP systolic 118–164; BP diastolic 82–101
[~2018-11-25] VITALS: Ht 185.4 cm; Wt 81.6 kg
[~2018-11-25 07:41] MED LIST changes: -CATHETER FLUSH 10 ML SYR IV PRN; -REGADENOSON 0.4 MG/5 ML SYR (LEXISCAN) IV ONE
[2018-11-25] MEDS ORDERED: HEParin (CATH LAB) 2,000 ML IV ONE (07:51)
[2018-11-25] MEDS ORDERED: NS IV 1000 ML 1,000 ML ONE (07:51)
[2018-11-25] MEDS ORDERED: LIDOCAINE 1% INJ 20 ML 20 ML VIAL ONE (07:51)
[2018-11-25] MEDS ORDERED: NS IV 1000 ML 1,000 ML IV SCH ×2 (07:52→10:04)
[2018-11-25 08:21] LABS: HEMOGLOBIN 13.2 G/DL (13.3-17.7); MEAN PLATELET VOLUME 10.1 FL (7.4-10.4); RED CELL DISTRIBUTION WIDTH 16.1 % (10.0-14.5); WHITE BLOOD COUNT 5.5 10^3/uL (4.3-11.0)
--- NOTE | 2018-11-25 08:37 | Diagnostic Imaging Report ---
EXAMINATION: Chest radiograph, portable AP view. DATE: November 25, 2018 at 0808 hours. INDICATION: 83-year-old male, exam prior to heart catheterization. COMPARISON: September 02, 2017. FINDINGS: There is redemonstrated and unchanged cardiomegaly. There is no identified pneumothorax. There is no large pleural effusion. There is no identified focal airspace consolidation. There are mild disc degenerative changes of the thoracic spine. IMPRESSION: Unchanged mild cardiomegaly without identified acute cardiopulmonary abnormality. Dictated by: Dictated on workstation # [id number]
[2018-11-25 08:38] LABS: PROTHROMBIN TIME PATIENT 13.6 SEC (12.2-14.7)
[2018-11-25] MEDS ORDERED: PRED2.5T PO (08:41)
[2018-11-25] MEDS ORDERED: APIX5TAB PO (08:41)
[2018-11-25] MEDS ORDERED: LOSA25TA41 PO (08:41)
[2018-11-25] MEDS ORDERED: ACET-93 PO (08:44)
--- NOTE | 2018-11-25 08:45 | NUR ---
SPOKE WITH PT (HE HAD A LIST OF HOME MEDS) TO COMPLETE THE MED REC. PT WAS ABLE TO TELL ME ALL HIS MEDS WELL HOW HE TAKES THEM. OTC MEDS: ACETAMINOPHEN 500M DAILY PRN
[2018-11-25 08:46] LABS: ALANINE AMINOTRANSFERASE 18 U/L (0-55); ALBUMIN 4.3 GM/DL (3.2-4.5); ALKALINE PHOSPHATASE 85 U/L (40-136); BILIRUBIN,TOTAL 0.8 MG/DL (0.1-1.0); BUN/CREATININE RATIO 15; CALCIUM 9.5 MG/DL (8.5-10.1); CARBON DIOXIDE 27 MMOL/L (21-32); CHLORIDE 107 MMOL/L (98-107); CHOLESTEROL 154 MG/DL (< 200); CREATININE SERUM 0.79 MG/DL (0.60-1.30); GFR ESTIMATED > 60; GLUCOSE 84 MG/DL (70-105); HDL CHOLESTEROL 69 MG/DL (40-60); POTASSIUM 3.8 MMOL/L (3.6-5.0); SODIUM 143 MMOL/L (135-145); TRIGLYCERIDES 42 MG/DL (<150); VLDL CHOLESTEROL 8 MG/DL (5-40)
[2018-11-25] MEDS ORDERED: fentaNYL INJECTION 100 MCG/2 ML AMP ONE (09:07)
[2018-11-25] MEDS ORDERED: MIDAZOLAM 5 MG/5 ML (VERSED) VIAL ONE (09:07)
--- NOTE | 2018-11-25 10:06 | Discharge Inst-Post CATH ---
Discharge Inst-CATH/EP Problems Reviewed?: Yes Post Cardiac Cath/EP D/C Inst Follow Up/Plan Appointment with Dr. Ojeda's office in 4 weeks <b>CARDIAC CATH/EP PROCEDURE DISCHARGE INSTRUCTIONS</b> ACTIVITY * Go Home directly and rest. * Limit activity of the leg (or wrist if it was used) for 7 days including aerobics, swimming, jogging, bicycling, etc. * Restrict stair-climbing for 7 days if possible, if not, climb up with your non-cath leg, then bring together on the same step. * Avoid lifting, pushing, pulling or excessive movement of the affected extremity for 7 days. * Customary sexual activity may be resumed after 2 days-use caution not to use a position that strains or causes pain to the affected extremity. * No driving for 24 hours. * NO SMOKING. * Avoid straining for bowel movements for 7 days. * Gentle walking on level ground is allowed. * Returning to work will depend on the type of procedure and the results. Your doctor will discuss this with you. CALL YOUR DOCTOR FOR ANY OF THE FOLLOWING: *If bleeding from the puncture site occurs- Apply gentle pressure to site with clean cloth and call your doctor or EMS. * If a knot or lump forms under the skin, increases in size, or causes pain. * If bruising appears to be worsening or moving further down your leg instead of disappearing. * Temperature above 101 F. CARE OF YOUR GROIN INCISION; * Bruising or purple discoloration of the skin near the puncture site is common. * You may shower only, no bathtub bathing for 5 days. Be careful to avoid slipping as your leg may feel stiff. * If a closure device was used on your femoral artery, please see the attached guide regarding care of the device and your leg. * Leave dressing on FOR 24 hours. CARE OF YOUR WRIST INCISION; * Bruising or purple discoloration of the skin near the puncture site is common. * You may shower. * DO NOT submerge wrist. * Leave dressing on FOR 24 hours. PAWAN OJEDA MD Nov 25, 2018 10:05
--- NOTE | 2018-11-25 10:13 | Cardiac Cath Report ---
Cardiac Cath Report Physician (s)/Filler Sifter Machine (s) Physician PAWAN AKHTAR MD Pre-Procedure Diagnosis Pre-Procedure Diagnosis: coronary artery disease Post-Procedure Note Procedure Start Date: Nov 25, 2018 Name of Procedure: And left heart catheterization Aortic arch angiogram Findings/Procedure Note PROCEDURE NOTE: 83 years old gentleman with history of coronary artery disease had a stent to the proximal LAD, had an abnormal stress test with reversible ischemia involving the anterior wall. He was scheduled for cardiac catheterization possible PTCA. After explaining the procedure to the patient, all pros and cons were explained, all questions were answered. The patient signed the consent and then he was placed on the cardiac catheterization laboratory. Groin was prepped SL fashion local anesthesia was used. Sheath placed in the right femoral artery. Lv right and left catheter were used to access the coronary system. Pigtail was used to access the left ventricular cavity. Left ventriculogram was not done, pressure was measured Aortic arch angiogram was done At the end of the procedure the sheath was removed. Closure device was used FINDINGS: Hemodynamics LV 129/12, end-diastolic pressure of 12 Aorta 135/78 mean of 103 ANATOMY: Left Main is free of obstructive disease Left Anterior Descending has patent stent proximally, slightly slower flow in the LAD distally due to small vessel disease Left Circumflex has mild disease no obstructive disease Right Coronory Artery has mild disease no obstructive disease LV Gram was not done Aortic arch angiogram was done to evaluate aortic arch, normal aortic arch, no dissection or aneurysm, normal origin of the great vessels of the neck including left subclavian, left carotid and innominate artery CONCLUSION: 1. Patent stent in the LAD with slightly slower flow in the distal LAD due to small vessel disease. 2. Otherwise no significant obstructive disease in the carotid system 3. Normal left ventricular end-diastolic pressure. 4. Normal aortic arch and great vessels of the neck DISCUSSION AND RECOMMENDATION: continue with medical therapy, no intervention is needed Anesthesia Type: Conscious Sedation Estimated blood loss (mL): 15 ml Contrast Amount: 55 ML Total Radiation Dose: 320 mGy Post-Procedure Diagnosis Post-operative diagnosis: Coronary artery disease Paroxysmal atrial fibrillation Hypertension Hyperlipidemia PAWAN AKHTAR MD Nov 25, 2018 10:13
[2018-11-25] MEDS ORDERED: PATIENT MAY USE OWN MEDS, ALL PO SCH (10:15)
[2018-11-25] MEDS ORDERED: HYDROcodone/APAP 5 MG/325 MG (LORTAB) TAB ONE (10:23)
[2018-11-25] MEDS ORDERED: HYDROcodone/APAP 5 MG/325 MG (LORTAB) TAB PO ONE (10:45)
== END 2018-11-25 14:15 | disposition home or self-care (01) ==
LOC: CATH 07:41 → SDC 10:15 → CATH 14:15
PROVIDERS: ATTEND Internal Medicine Cardiovascular Disease
DX: I25.10 Atherosclerotic heart disease of native coronary artery without angina pectoris (principal); I48.2 Chronic atrial fibrillation; I34.0 Nonrheumatic mitral (valve) insufficiency; I44.4 Left anterior fascicular block; I65.29 Occlusion and stenosis of unspecified carotid artery; I11.0 Hypertensive heart disease with heart failure; I50.9 Heart failure, unspecified; I21.4 Non-ST elevation (NSTEMI) myocardial infarction; E78.5 Hyperlipidemia, unspecified; K21.9 Gastro-esophageal reflux disease without esophagitis; Z79.01 Long term (current) use of anticoagulants; Z79.899 Other long term (current) drug therapy; Z87.891 Personal history of nicotine dependence; Z87.19 Personal history of other diseases of the digestive system; Z82.49 Family history of ischemic heart disease and other diseases of the circulatory system; Z80.9 Family history of malignant neoplasm, unspecified
CPT/HCPCS: 36221; 36415; 71045; 80053; 80061; 85027; 85610; 85730; 87081; 93458

== ENCOUNTER → 2021-02-14 | Outpatient (CLI) | payer MEDICARE, OTHER ==
[~2021-02-14] MED LIST changes: +ACET-93 PO; -AMIO200T4 PO; +AMIO200T6 PO; -LISI-556 PO; +LISI-729 PO; +LOSA25TA41 PO; -METO-387 PO; +MTP25TSR PO; +PRED2.5T PO; -TAMS0.4C98 PO; +TMSL.4C PO
== END ==
LOC: CARD 15:00
PROVIDERS: ATTEND Internal Medicine Cardiovascular Disease
DX: I11.9 Hypertensive heart disease without heart failure (principal); I08.1 Rheumatic disorders of both mitral and tricuspid valves
CPT/HCPCS: 93306